=== PATIENT | male | born 1945 | race Caucasian/White ===

== ENCOUNTER 2017-02-13 11:05 | Observation (INO) | payer MEDICARE, BC ==
[~2017-02-13] VITALS: Ht 177.8 cm; Wt 92.8 kg
--- NOTE | ~2017-02-13 | HP ---
Unit #: [id number] #: [id number] Patient: WEI ANNA [id number] [address] [address] [id number] E MR#: [id number] NAME: WEI ANNA ROOM: Age: 71 Sex: M Admission Date: 02/13/2017 : 1945 Attending Physician: Ole Jewell M.D. Primary Care Physician: Galindo House M.D. HISTORY AND PHYSICAL CHIEF COMPLAINT Facial droop. HISTORY OF PRESENT ILLNESS The patient is a 71-year-old male with a history of hypertension brought to the emergency room with slurring of speech. The patient stated that patient was doing well this morning. Around 9 o'clock, patient was found to have trouble speaking, making nonsense, incomprehensible sounds associated with right-sided facial drooping. The whole episode lasted for three to five minutes. The patient had a similar episode again in the emergency room around 1350 hours and had trouble speaking that lasted a few seconds. The patient is being admitted for the above reasons. The patient had a CT of the head that shows no acute intracranial pathology. The patient denies any chest pain, denies any dizziness, denies any headache, and denies any weakness. PAST MEDICAL HISTORY 1. Hypertension. 2. Tremors and sees neurology for that. PAST SURGICAL HISTORY None. HOME MEDICATIONS 1. Lopressor. 2. Allopurinol. 3. Mysoline. 4. Cozaar. ALLERGIES No known drug allergies. SOCIAL HISTORY Smokes tobacco occasionally, uses alcohol occasionally, and denies any illicit drug abuse. FAMILY HISTORY Reviewed and none. REVIEW OF SYSTEMS Patient has slurring of speech. Patient has facial droop. Denies any chest pain, denies any headache, and denies any nausea or vomiting. Other systems have been reviewed, and all other systems are negative. Unit #: [id number] #: [id number] Patient: WEI ANNA PHYSICAL EXAMINATION GENERAL: Patient is lying in bed not in acute distress. VITAL SIGNS: Temperature 97.4, pulse 72, respiratory rate 40, blood pressure 140/100, and saturating 97% on room air. HEENT: Head atraumatic, normocephalic. Pupils equal, round, and reactive to light and accommodation. Extraocular movements are intact. Moist mucous membranes. NECK: Supple. LUNGS: Decreased air entry at the bases. HEART: Regular rate and rhythm. ABDOMEN: Soft. Positive bowel sounds. EXTREMITIES: No cyanosis, no clubbing. NEUROLOGIC: Equal strength in the upper and lower extremities. Patient has residual minimal facial droop. Slurring of speech is resolved. DIAGNOSTIC STUDIES LABORATORY: WBC 7.8, hemoglobin 14.7, hematocrit 43.6, and platelets 197,000. Sodium 138, potassium 4.1, chloride 106, bicarb 24, glucose 105, BUN 13, creatinine 0.9, AST 23, ALT 22, and alkaline phosphatase 48. IMAGING: Chest x-ray shows no acute cardiopulmonary pathology. CARDIOLOGY: EKG shows normal sinus rhythm and left anterior fascicular block. ASSESSMENT 1. Transient ischemic attack. 2. Hypertension. PLAN Admit the patient to observation with telemetry. Patient will be seen by Neurology. The ER spoke to (1) and recommended Plavix, along with aspirin. Check the MRI, check the echo, check the carotid ultrasound, and repeat the labs again in the morning with a TSH and hemoglobin A1c, and further recommendations will follow. Dictated by Naima Fragoso TD: 02/13/2017 17:20 JOB #: [id number] HISTORY AND PHYSICAL Page 1 of 1 X LOCO BARAKAT MD X HISTORY AND PHYSICAL
--- NOTE | ~2017-02-13 | CT23 ---
[facility] A Service of [facility] RADIOLOGY TEXT RESULTS PATIENT: WEI ANNA LOCATION: [facility] 304-01 : [birth year] UNIT #: [id number] AGE: [address]: Mikhail Frausto MD SEX: M ORDER DR: [id number] [facility] [address] [place], [place] [address] [id number] I MR#: [id number] #: [id number] NAME: WEI ANNA : 1945 SEX: M STUDY DATE/TIME: 02/13/2017 13:49 UNIT: [address] ROOM: [facility] STUDY DESCRIPTION: CT Angio Neck Attending Physician: Christina Elaine M.D. Ordering Physician: Ole Jewell M.D. Primary Care Physician: Galindo House M.D. MEDICAL IMAGING REPORT This report is preliminary unless electronic signature is present EXAM Head and neck CT angiogram with contrast 02/13/2017 FINDINGS Result text under order number [id number]. Please see this order for result text. Dictated by... Jeremy Fry M.D. THIS IS AN ELECTRONICALLY VERIFIED REPORT Jeremy Fry M.D. at 02/21/2017 4:56 PM TEV/to TD: 02/13/2017 21:29 JOB #: [id number] MEDICAL IMAGING REPORT Page 1 of 1 COPY
--- NOTE | ~2017-02-13 | DS ---
Unit #: [id number] #: [id number] Patient: WEI ANNA [id number] [address] [address] [id number] I MR#: [id number] NAME: WEI ANNA ROOM: 304 Age: 71 Sex: M Admission Date: 02/13/2017 : 1945 Discharge Date: 02/14/2017 Attending Physician: Mikhail Frausto M.D. Primary Care Physician: Galindo House M.D. DISCHARGE SUMMARY ADMISSION DIAGNOSES 1. TIA. 2. Hypertension. CONSULTANTS Katherine Brown M.D. - Neurology. DIAGNOSTIC STUDIES IMAGING: Portable chest x-ray findings - stable mild cardiac enlargement, lung volumes moderate, no acute pulmonary disease, pleural effusion and pneumothorax. No suspicious nodule. No acute bony appearing abnormality. Degenerative changes in the spine. CTA of the head and neck. Impression - plaque at the cervical carotid bifurcations with about 50% right and 105 left CA stenosis by NASCET criteria. Multifocal intracranial atherosclerotic stenosis, at least moderate in severity, seen particularly in the anterior cerebral distributions in the middle of posterior cerebral territories as well. No intracranial aneurysm seen. The anterior communicator appears probably patent but neither posterior communicators identified. There is no intracranial mass or abnormal enhancement and, while there is volume loss, there is no hydrocephalus. Dural venous sinuses are normal. Incidentally noted coronary atherosclerotic vascular calcification seen as well as at least in the left main and left anterior descending coronary arteries. MRI of the brain with and without contrast. Impression - moderately advanced volume loss, nonspecific white matter change. No acute ischemia, hemorrhage, mass, hydrocephalus, extraaxial fluid collection or other acute abnormality. CT of the head without contrast. Impression - no acute intracranial findings. No interval change. LABORATORY: WBC 7.8, hemoglobin 14.7, hematocrit 43.6, platelets 197,000. Sodium 138, potassium 4.4, chloride 103, CO2 27, glucose 103, BUN 10, creatinine 0.9, calcium 8.6. Hemoglobin A1c 5.2, total cholesterol 188, triglycerides 319, LDL cholesterol 67, HDL cholesterol 57. CRP less than 0.5. TSH 3.30, BNP 101. CARDIOVASCULAR: 2D echocardiogram per verbal report, Dr. Dozier - left ventricular ejection fraction normal range. Bubble study images suboptimal. CONDITION Unit #: [id number] #: [id number] Patient: WEI ANNA Stable. DISPOSITION Home. DISCHARGE MEDICATIONS 1. Mysoline 50 mg p.o. t.i.d. 2. Lopressor 25 mg p.o. daily. 3. Lipitor 40 mg p.o. at bedtime. 4. Cozaar 50 mg p.o. daily. 5. Allopurinol 300 mg p.o. daily. 6. Plavix 75 mg p.o. daily. DISCHARGE INSTRUCTIONS The patient is to call and schedule a followup appointment with his primary care physician in 5 to 7 days. He is to call and schedule a followup appointment with Dr. Donohue, neurologist, in three to four weeks. The patient is to discontinue home dose of aspirin per order of Dr. Brown. HOSPITAL COURSE The patient is a 71-year-old, obese, male who presented to [facility] on the date of admission with complaint of facial droop. He also complained of slurring of speech associated with trouble speaking, making nonsense and incomprehensible sounds. He stated the episode lasted approximately three to five minutes. Another episode similar on presentation was noted in the emergency department which lasted a few seconds. The patient was admitted to the hospital for further evaluation and management of his condition. Please refer to history and physical report for complete details. Dr. Brown was consulted for further neurologic evaluation and management. Patient underwent a complete stroke workup with results as dictated above. At this time, Dr. Brown feels that the episode was likely TIA. Patient's home dose of aspirin has been discontinued and he has been started on Plavix 75 mg p.o. daily. Prescription has been written for him to fill at the time of discharge. The patient has also been advised to continue Lipitor 40 mg, one p.o. at bedtime. A prescription has been given for that as well. All of the patient's symptoms have completely resolved and he has had no further episodes since the emergency department yesterday. He is tolerating food and fluids well without dysphagia. He has been evaluated by both Dr. Frausto and Dr. Brown and cleared for discharge home with discharge followup and instructions as dictated above. Dictated by... Shruthi Ramírez, Kavita.P.R.N. for Mikhail Frausto M.D. Yamilet/will TD: 02/17/2017 06:18 JOB #: [id number] Unit #: [id number] #: [id number] Patient: WEI ANNA LEIGHA DISCHARGE SUMMARY Page 1 of 1 X Shruthi Ramírez APRN X DISCHARGE SUMMARY
--- NOTE | ~2017-02-13 | CT17 ---
[facility] A Service of [facility] RADIOLOGY TEXT RESULTS PATIENT: WEI ANNA LOCATION: [facility] 304-01 : [birth year] UNIT #: [id number] AGE: [address]: Mikhail Frausto MD SEX: M ORDER DR: [id number] [facility] [address] [place], [place] [address] [id number] I MR#: [id number] Acc #: [id number] NAME: WEI ANNA : 1945 SEX: M STUDY DATE/TIME: 02/13/2017 13:49 UNIT: [address] ROOM: [facility] STUDY DESCRIPTION: CT Angio Head Attending Physician: Christina Elaine M.D. Ordering Physician: Ole Jewell M.D. Primary Care Physician: Galindo House M.D. MEDICAL IMAGING REPORT This report is preliminary unless electronic signature is present EXAM Head and neck CT angiogram with contrast 02/13/2017 PROCEDURE Axial contrast enhanced head and neck CT angiogram with three dimensional reformats. This CT exam was performed with one or more of the following radiation dose reduction techniques: automatic exposure control, adjustment of mA and/or kV according to patient size, and iterative reconstruction. COMPARISON Head CT 02/13/2017 HISTORY Slurred speech, unsteady gait and facial droop for one day. FINDINGS There is a normal arch branching pattern. There is no proximal great vessel stenosis. The left vertebral is dominant, but both vertebral arteries are patent at their origins. Both contribute to the basilar artery, though again the left remains dominant throughout the neck. There is plaque at both cervical carotid bifurcations, but antegrade flow in both internal and external carotid arteries. There is no more than 10% left ICA stenosis by NASCET criteria. On the right, there is fairly long segment partially calcified plaque in the proximal bulb. There is about 50% stenosis by NASCET criteria. Intracranially, there are multifocal areas of atherosclerotic vascular narrowing in the anterior and middle cerebral distributions and posterior [facility] A Service [facility] RADIOLOGY TEXT RESULTS PATIENT: WEI ANNA LOCATION: [facility] 304-01 : [birth year] UNIT #: [id number] AGE: [address]: Mikhail Frausto MD SEX: M ORDER DR: cerebral distributions, but no aneurysm is seen. The anterior communicator appears patent, though neither posterior communicator is convincingly demonstrated. The dural venous sinuses are normal. IMPRESSION 1. Plaque at the cervical carotid bifurcations with about 50% right and 10% left ICA stenosis by NASCET criteria. 2. Multifocal intracranial atherosclerotic stenoses, at least moderate in severity seen particularly in the anterior cerebral distributions, then the middle of posterior cerebral territories as well. 3. No intracranial aneurysm is seen. The anterior communicator appears probably patent, but neither posterior communicator is identified. 4. There is no intracranial mass or abnormal enhancement and while there is volume loss, there is no hydrocephalus. The dural venous sinuses are normal. 5. Incidentally noted coronary atherosclerotic vascular calcification is seen as well at least in the left main and left anterior descending coronary arteries. Dictated by... Jeremy Fry M.D. THIS IS AN ELECTRONICALLY VERIFIED REPORT Jeremy Fry M.D. at 02/21/2017 4:56 PM TEV/to TD: 02/13/2017 21:26 JOB #: [id number] MEDICAL IMAGING REPORT Page 1 of 1 COPY
--- NOTE | ~2017-02-13 | CR72 ---
[facility] A Service of [facility] RADIOLOGY TEXT RESULTS PATIENT: WEI ANNA LOCATION: [facility] 304-01 : [birth year] UNIT #: [id number] AGE: [address]: Mikhail Frausto MD SEX: M ORDER DR: [id number] [facility] [address] [place], [place] [address] [id number] MR#: [id number] Acc #: [id number] NAME: WEI ANNA : 1945 SEX: M STUDY DATE/TIME: 02/13/2017 11:47 UNIT: [place] ROOM: STUDY DESCRIPTION: CR Chest Single View Portable Attending Physician: Ole Jewell M.D. Ordering Physician: Ole Jewell M.D. Primary Care Physician: Galindo House M.D. MEDICAL IMAGING REPORT This report is preliminary unless electronic signature is present EXAM Portable chest x-ray, 02/13/2017. HISTORY Altered mental status. Short of air, slurred speech 1 day duration. Smoker 40 years. TECHNIQUE AP radiograph of the chest is presented. COMPARISON 10/03/2014 FINDINGS Stable mild cardiac enlargement. Lung volumes moderate. No acute pulmonary disease, pleural effusion or pneumothorax. No suspicious nodule. No acute-appearing bony abnormality. Degenerative changes in the spine. Dictated by... Ino Mata M.D. THIS IS AN ELECTRONICALLY VERIFIED REPORT Ino Mata M.D. at 02/14/2017 6:15 PM LUCERO/shazia TD: 02/13/2017 16:32 JOB #: [id number] MEDICAL IMAGING REPORT Page 1 of 1 COPY
--- NOTE | ~2017-02-13 | EKG ---
PATIENT: WEI ANNA UNIT #: [id number] Ventricular Rate: 64 BPM Atrial Rate: 64 BPM P-R Interval: 202 ms QRS Duration: 94 ms Q-T Interval: 418 ms QTC Calculation(Bezet): 431 ms P [place]: 80 degrees Calculated R [place]: -49 degrees Diagnosis Line: Normal sinus rhythm Diagnosis Line: Pulmonary disease pattern Diagnosis Line: Left anterior fascicular block Diagnosis Line: Septal infarct versus loss of R wave voltage in Diagnosis Line: V1-V3 related to left axis Diagnosis Line: Cannot rule out Inferior infarct (cited on or Diagnosis Line: before 13-FEB-2017) Diagnosis Line: Abnormal ECG Diagnosis Line: When compared with ECG of 03-OCT-2014 14:35, Diagnosis Line: Vent. rate has decreased BY 54 BPM Diagnosis Line: Nonspecific T wave abnormality now evident in Diagnosis Line: Inferior leads Diagnosis Line: T wave inversion no longer evident in Lateral Diagnosis Line: leads Diagnosis Line: Confirmed by RAMONA NORTON MD ([id number]) on 02/13/2017 Diagnosis Line: 7:26:35 PM INTERPRETING MD: CIERRA CARRANZA
--- NOTE | ~2017-02-13 | MR18 ---
[facility] A Service [facility] RADIOLOGY TEXT RESULTS PATIENT: WEI ANNA LOCATION: [facility] : [birth year] UNIT #: [id number] AGE: [address]: Mikhail Frausto MD SEX: M ORDER DR: [id number] [id number] [place], [place] [address] [id number] I MR#: [id number] Acc #: [id number] NAME: WEI ANNA : 1945 SEX: M STUDY DATE/TIME: 02/13/2017 17:17 UNIT: [address] ROOM: [facility] STUDY DESCRIPTION: MR Brain Wo Contrast Attending Physician: Christina Elaine M.D. Ordering Physician: Christina Elaine M.D. Primary Care Physician: Galindo House M.D. MRI CENTER REPORT This report is preliminary unless electronic signature is present. EXAM Brain MR without contrast, 02/13/2017. PROCEDURE Routine brain MR without contrast. COMPARISON Head CT, same date. CLINICAL HISTORY Slurred speech. FINDINGS The brain is structurally normal. There is moderate volume loss and there is moderate symmetric, nonspecific white matter change but there is no hydrocephalus or extraaxial fluid collection. Bone marrow signal is normal. Normal flow voids are seen in the cerebral vessels. There is no evidence of intracranial hemorrhage. There is no hydrocephalus or extraaxial fluid collection. There is no evidence of acute ischemia or other restricted diffusion. IMPRESSION Moderately advanced volume loss, moderate nonspecific white matter change. No acute ischemia, hemorrhage, mass, hydrocephalus, extraaxial fluid collection or other acute abnormality. Dictated by... Jeremy Fry M.D. [facility] A Service [facility] RADIOLOGY TEXT RESULTS PATIENT: WEI ANNA LOCATION: [facility] : 45 UNIT #: [id number] AGE: [address]: Mikhail Frausto MD SEX: M ORDER DR: THIS IS AN ELECTRONICALLY VERIFIED REPORT Jeremy Fry M.D. at 02/21/2017 4:56 PM ANNETTE/gilma TD: 02/14/2017 00:08 JOB #: [id number] MRI CENTER REPORT Page 1 of 1 COPY
--- NOTE | ~2017-02-13 | CT71 ---
[facility] A Service [facility][1] RADIOLOGY TEXT RESULTS PATIENT: WEI ANNA LOCATION: [facility] 304-01 : 45 UNIT #: [id number] AGE: [address]: Mikhail Frausto MD SEX: M ORDER DR: [id number] [address] [address] [id number] E MR#: [id number] Acc #: [id number] NAME: WEI ANNA : 1945 SEX: M STUDY DATE/TIME: 02/13/2017 13:35 UNIT: [place] ROOM: STUDY DESCRIPTION: CT Head Wo Contrast Attending Physician: Ole Jewell M.D. Ordering Physician: Ole Jewell M.D. Primary Care Physician: Galindo House M.D. MEDICAL IMAGING REPORT This report is preliminary unless electronic signature is present EXAM CT head HISTORY Facial droopiness. Slurred speech. Unsteady gait for one day. TECHNIQUE CT of the head without contrast. This CT exam was performed with one or more of the following radiation dose reduction techniques: automatic control, adjustment of mA and/or kV according to patient size, and iterative reconstruction. COMPARISON CT head 10/04/2014 FINDINGS There is no acute intracranial hemorrhage, mass lesion, or acute infarct. Lqts-niwrr-jdltrl differentiation is normal. There is some mild global cerebral atrophy. There is asymmetric dilation atria of the left lateral ventricle, however this is unchanged. No extraaxial collections. No acute osseous abnormalities. IMPRESSION No acute intracranial findings. No interval change. Dictated by... Gwyn Mendez M.D. THIS IS AN ELECTRONICALLY VERIFIED REPORT [facility] A Service [facility][1] RADIOLOGY TEXT RESULTS PATIENT: WEI ANNA [facility] 304-01 : 45 UNIT #: [id number] AGE: [address]: Mikhail Frausto MD SEX: M ORDER DR: Gwyn Mendez M.D. at 02/14/2017 2:50 PM YOLI/sony TD: 02/13/2017 19:10 JOB #: [id number] MEDICAL IMAGING REPORT Page 1 of 1 COPY
--- NOTE | ~2017-02-13 | CO ---
Unit #: [id number] #: [id number] Patient: WEI ANNA [id number] [facility] [address] [place], [place] [address] [id number] I MR#: [id number] NAME: WEI ANNA ROOM: 304 Age: 71 Sex: M Admission Date: 02/13/2017 : 1945 Attending Physician: Mikhail Frausto M.D. Primary Care Physician: Galindo House M.D. Consultation Date: 02/14/2017 CONSULTATION REPORT PRIMARY CARE PHYSICIAN Galindo House M.D. REASON FOR CONSULTATION Transient neurologic deficit, possible TIA. PATIENT IDENTIFICATION This is a 71-year-old right-handed white male who was evaluated in room 304 at [facility]. SOURCE OF INFORMATION The patient and the evaluation done by Dr. Elaine. PROBLEM LIST 1. Hypertension. 2. Possible essential or other type of tremor. 3. Gout. 4. Some tobacco abuse and alcohol use on chronic basis. HISTORY OF PRESENT ILLNESS This is a very pleasant 71-year-old gentleman who actually presented to the emergency room yesterday and the presentation was for transient episode of speech. There may have been some right-sided facial droop. There was possibly another episode after he came in here. This lasted a few seconds, but it was very nonspecific. No headaches. No migraines. No seizures. He was evaluated. He ended up with CT, which was unremarkable. He ended up with an MRI, which did not show any acute stroke. His MRI shows some small vessel type changes, nothing major. His CTA was also okay. When he came in, his blood pressure was as high as 100 diastolic, but his systolic has been varied. It was the last one was 169/86. His other labs really did not show anything major. His hemoglobin A1c was 5.2. His LDL was not checked. His echo I believe is pending. No migraines. No seizures. No recurrent events, and I am not impressed with any other neurologic issues. His tremor is very well controlled. He denies any missing doses or other problems. PAST MEDICAL HISTORY As discussed above. PAST SURGICAL HISTORY None. ALLERGIES None. Unit #: [id number] #: [id number] Patient: WEI ANNA HOME MEDICATIONS Lopressor, allopurinol, amoxicillin, and Cozaar. FAMILY HISTORY Reviewed. No stroke in young. SOCIAL HISTORY Apparently I believe he is , lives at home. He smokes one cigar daily since school age and he drinks five beers before he goes to bed. No drugs. REVIEW OF SYSTEM Detailed review of system was attempted. The patient denies any weight issues, fever, chills, rigor, or sweats. HEENT: No headaches. No double vision, earache, runny nose, or sore throat. CARDIOVASCULAR: No chest pain, clubbing, cyanosis, orthopnea, or palpitation. PULMONARY: No shortness of air, cough, or expectoration. GI: No nausea, vomiting, diarrhea, or constipation. : No genitourinary symptoms. No extremity problems anymore. No back problem. PSYCHIATRIC: No psychotic issue. NEUROLOGIC: No neurologic issue. No other hematologic, dermatologic, or endocrine issue. He does have tremors, which are better controlled. PHYSICAL EXAMINATION VITAL SIGNS: Temperature 97.8, pulse is 75, respirations 18, blood pressure 169/86, and O2 saturations are 94% to 97%. Weight of 204 pounds. BMI was 32. NEUROLOGIC: The patient is awake. He is alert. He is oriented. He can name and he can follow commands. No right or left confusion. No finger agnosia. Cranial nerve examination demonstrates full morris of vision to confrontation. Eye movements are conjugate. I did not see any ptosis. I did not see any nystagmus. Sensation on the face and scalp are normal. Strength of muscles of facial expression normal. Hearing seemed to be intact bilaterally. Tongue was midline. Uvula was midline. Palate elevation normal. Head turning and shoulder shrugs were unremarkable. Motor examination demonstrated normal bulk, tone. Strength was essentially 5/5. Sensory examination intact for soft touch and pain sensation. No extinction was seen. Romberg was not evaluated. Gait examination were deferred. Coordination was normal. He has tremors, which of course some possible terminal. Reflexes, 1/4 except I could not get any in the right knee. Toes are equivocal. Gait was deferred. Labs and imaging studies reviewed. IMPRESSION Possible transient ischemic attack. I will switch him to Plavix. Good blood pressure control. I will check his lipid profile. If his echo IS Unit #: [id number] #: [id number] Patient: WEI ANNA, he may be discharged to follow up with Dr. Donohue because he has not seen a neurologist in quite some time. I am not impressed otherwise. Stroke education, smoking cessation, and alcohol cessation was recommended. Call if any other questions, issues, or concerns. Dictated by... Naima Goldman/gurdeep TD: 02/15/2017 09:17 JOB #: [id number] CONSULTATION REPORT Page 1 of 1 X Katherine Brown MD X CONSULTATION REPORT
[~2017-02-13 11:05] MED LIST: BAYER ASPIRIN325 M1 PO; FLEXERIL10 MG PO; LOSARTAN POTASS25 MG PO; ZYLOPRIM100 MG PO
[2017-02-13 12:15] LABS: BASOPHIL% 0.5 % (0-2.5); EOSINOPHIL# 0.4 X10e3 (0-0.7); EOSINOPHIL% 4.7 % (0.0-7.0); HEMATOCRIT 43.6 % (38.0-50.0); HEMOGLOBIN 14.7 gm/dL (13.0-16.0); LYMPHOCYTE# 1.8 X10e3 (1.0-3.5); LYMPHOCYTE% 23.4 % (17.0-45.0); MEAN CORPUSCULAR HEMOGLOBIN 31.8 PG (28-34); MEAN CORPUSCULAR HGB CONC 33.8 g/dL (30-36); MEAN PLATELET VOLUME 7.8 FL (6.5-11.5); MONOCYTE# 0.8 X10e3 (0-1.0); MONOCYTE% 10.3 % (3.0-12.0); NEUTROPHIL# 4.8 X10e3 (1.5-7.1); NEUTROPHIL% 61.1 % (40-75); PLATELET COUNT 197 X10e3 (140-420); RED BLOOD COUNT 4.64 X10e (3.90-5.60); RED CELL DISTRIBUTION WIDTH 13.2 % (11.0-15.5); WHITE BLOOD COUNT 7.8 X10e3 (4.0-10.5)
[2017-02-13 12:18] LABS: DIFF IND NO
[2017-02-13 12:37] LABS: ALBUMIN SERUM 4.1 g/dL (3.5-5.0); BILIRUBIN,TOTAL 0.5 mg/dL (0.2-2.0); BUN/CREATININE RATIO 14.44; CALCIUM SERUM 8.7 mg/dL (8.4-10.2); CREATININE SERUM 0.9 mg/dL (0.6-1.4); GLOM FILT RATE Estimated 85.6 mL/min (>60); POTASSIUM 4.1 mmol/L (3.5-5.1); PROTEIN TOTAL SERUM 7.2 g/dL (6.0-8.3)
[2017-02-13] MEDS ORDERED: PATIENT'S PHARMACY (14:16)
[2017-02-13] MEDS ORDERED: MYSOLINE50 M2 PO (14:16)
[2017-02-13] MEDS ORDERED: COZAAR PO (14:16)
[2017-02-13] MEDS ORDERED: LOPRESSOR PO (14:16)
[2017-02-13] MEDS ORDERED: ALLOPURINOL300 MG PO (14:16)
[2017-02-14 04:59] LABS: HEMATOCRIT 41.7 % (38.0-50.0); HEMOGLOBIN 13.8 gm/dL (13.0-16.0); MEAN CELL VOLUME 95.2 FL (83-96); MEAN CORPUSCULAR HEMOGLOBIN 31.6 PG (28-34); MEAN CORPUSCULAR HGB CONC 33.2 g/dL (30-36); MEAN PLATELET VOLUME 7.6 FL (6.5-11.5); RED BLOOD COUNT 4.38 X10e (3.90-5.60); RED CELL DISTRIBUTION WIDTH 13.2 % (11.0-15.5)
[2017-02-14 06:44] LABS: BUN/CREATININE RATIO 11.11; CALCIUM SERUM 8.6 mg/dL (8.4-10.2); CREATININE SERUM 0.9 mg/dL (0.6-1.4); GLOM FILT RATE Estimated 85.6 mL/min (>60); POTASSIUM 4.4 mmol/L (3.5-5.1)
[2017-02-14 13:42] LABS: CHOLESTEROL 188 mg/dL (0-200); HDL CHOLESTEROL 57 mg/dL (29-75); LDL CHOLESTEROL 67 mg/dL (-130); LDL/HDL RATIO 1 RATIO (0-4); TRIGLYCERIDES 319 mg/dL (10-160)
[2017-02-14] MEDS ORDERED: CLOPIDOGREL75 MG PO (15:28)
[2017-02-14] MEDS ORDERED: LIPITOR40 MG PO (15:28)
== END 2017-02-14 16:25 | disposition home or self-care (01) ==
LOC: CED 11:05 → CEDOF 15:57 → CED 19:59 → C3A PCU 20:02 → CEDOF 20:02 → C3A PCU 20:02
PROVIDERS: Emergency Medicine; Internal Medicine
DX: G45.9 Transient cerebral ischemic attack, unspecified (principal); I10 Essential (primary) hypertension; M10.9 Gout, unspecified; F17.210 Nicotine dependence, cigarettes, uncomplicated; Z79.899 Other long term (current) drug therapy
CPT/HCPCS: 36415; 70450; 70496; 70498; 70551; 71010; 80048; 80053; 80061; 83036; 83880; 84443; 85025; 85027; 86140; 93005; 93306; 94760; 99285; G0378; J2060; Q9967